=== PATIENT | female | born 1945 | race Caucasian/White ===

== ENCOUNTER → 2023-04-07 16:55 | Outpatient (REF) | payer OTHER, SELFPAY | LOC: PAVMRI 16:55 | PROVIDERS: ATTENDING PHYSICIAN Physician Assistant; FAMILY PHYSICIAN Internal Medicine Geriatric Medicine | DX: S46.011A Strain of muscle(s) and tendon(s) of the rotator cuff of right shoulder, initial encounter (principal); M25.511 Pain in right shoulder | CPT/HCPCS: 73221 ==

== ENCOUNTER → 2023-04-19 13:38 | Outpatient (REF) | payer OTHER, SELFPAY | LOC: WDC 13:38 | PROVIDERS: ATTENDING PHYSICIAN Internal Medicine Geriatric Medicine | DX: Z12.31 Encounter for screening mammogram for malignant neoplasm of breast (principal) | CPT/HCPCS: 77063; 77067 ==

== ENCOUNTER → 2024-03-02 11:02 | Outpatient (REF) | payer SELFPAY | LOC: RAD 11:02 | PROVIDERS: ATTENDING PHYSICIAN Internal Medicine Geriatric Medicine | DX: E78.00 Pure hypercholesterolemia, unspecified (principal); E78.2 Mixed hyperlipidemia; I10 Essential (primary) hypertension; E03.8 Other specified hypothyroidism; M54.50 Low back pain, unspecified; L65.8 Other specified nonscarring hair loss; G47.8 Other sleep disorders; V89.2XXA Person injured in unspecified motor-vehicle accident, traffic, initial encounter; M25.511 Pain in right shoulder; E66.09 Other obesity due to excess calories; E55.9 Vitamin D deficiency, unspecified; Z13.31 Encounter for screening for depression | CPT/HCPCS: 75571 ==

== ENCOUNTER → 2024-04-24 12:54 | Outpatient (REF) | payer OTHER, SELFPAY | LOC: WDC 12:54 | PROVIDERS: ATTENDING PHYSICIAN Internal Medicine Geriatric Medicine | DX: Z12.31 Encounter for screening mammogram for malignant neoplasm of breast (principal) | CPT/HCPCS: 77063; 77067 ==